=== PATIENT | female | born 1975 | race Caucasian/White ===

== ENCOUNTER 2018-11-04 08:00 | Outpatient (CLI) | payer MEDICAID ==
[2015-02-11 14:17] VITALS: BMI 26.6
[~2018-11-04 08:00] MED LIST: ALBUTEROL2.5 MG/3 M UPD; AMBIEN CR12.5 MG/BO; AMBIEN10 MG PO; BUTISOL SODIUM30 MG PO; CARAFATE1 G PO; CARDIZEM PO; CARDIZEM30 MG PO; CYMBALTA60 MG PO; DEMEROL100 MG PO; DEXILANT60 MG PO; DILAUDID2 MG PO; HYDROCODONE-APA1 TAB PO; IPRAT-ALBUT 0.5-3 ML UPD; KLOR-CON 1010 MEQ PO; LASIX20 MG PO; LEVSIN/ANASP0.125 MG SL; MAGIC MOUTHWASH PO; NEXIUM40 MG PO; NYSTATIN ORAL SU5 ML PO; ONDANSETRON4 MG/2 M3 IM; PAXIL10 MG PO; PHENERGAN25 MG/ML PO; REQUIP0.25 MG PO; REQUIP1 MG PO; SINGULAIR10 MG PO; SOMA350 MG PO; STADOL NASAL S2.5 ML NASAL; TENORMIN50 MG PO; TUSSIONEX PENN473 ML PO; TYLENOL W/CODEIN5 ML PO; ULORIC40 MG PO; XANAX1 MG PO
== END 2018-11-04 23:59 | disposition home or self-care (01) ==
LOC: D.MAMMO 08:00
PROVIDERS: ATTEND Nurse Practitioner Family
DX: Z12.31 Encounter for screening mammogram for malignant neoplasm of breast (principal)

== ENCOUNTER 2019-04-30 12:40 | Emergency (ER) | payer MEDICAID ==
[~2019-04-30] VITALS: Ht 165.1 cm; Wt 70.5 kg
[2019-04-30 12:46] VITALS: Ht 165.1 cm; Wt 70.5 kg
[2019-04-30] MEDS ORDERED: REQUIP5 MG PO (12:49)
[2019-04-30 13:53] LABS: BASOPHILS 0.2 % (0-2); EOSINOPHILS 1.7 % (0-7); HEMATOCRIT 39.6 % (36.0-48.0); HEMOGLOBIN 13.1 g/dL (12-16); IMMATURE GRANULOCYTES 0.1 % (0-5); LYMPHOCYTES 33.5 % (15-50); MCH 30.5 pg (26.0-34.0); MCHC 33.1 g/dL (31.0-37.0); MCV 92.1 fL (80.0-100.0); MEAN PLATELET VOLUME 10.2 fL (7.4-10.4); NEUTROPHILS 59.5 % (40-80); PLATELET COUNT 337 10x3/uL (130-400); WBC 9.3 10x3/uL (4.8-10.8)
[2019-04-30 13:54] LABS: CALC OSMOLALITY 286 mosm/kg (275-300); CALCIUM 8.8 mg/dL (8.5-10.1); CARBON DIOXIDE 28.3 mmol/L (21.0-32.0); CHLORIDE - SERUM 108 mmol/L (98-107); CREATININE - SERUM 0.7 mg/dL (0.6-1.3); GLUCOSE 118 mg/dL (74-106); SODIUM 143 mmol/L (136-145); UREA NITROGEN 14 mg/dL (7-18); eGFR NON AFRICAN AMERICAN > 90 mL/min (90-120)
[2019-04-30 14:02] LABS: ALBUMIN 3.3 g/dL (3.4-5.0); ALKALINE PHOSPHATASE 129 U/L (46-116); ALT (SGPT) 18 U/L (10-68); PROTEIN - SERUM 6.6 g/dL (6.4-8.2)
[2019-04-30 14:54] LABS: APPEARANCE CLEAR (CLEAR); BILIRUBIN NEGATIVE (NEGATIVE); COLOR YELLOW (YELLOW); GLUCOSE NEGATIVE (NEGATIVE); KETONE NEGATIVE (NEGATIVE); NITRITE NEGATIVE (NEGATIVE); PROTEIN NEGATIVE (NEGATIVE); SPECIFIC GRAVITY 1.015 (1.005-1.020); UROBILINOGEN NORMAL (NORMAL)
[2019-04-30] MEDS ORDERED: ULTRAM50 MG PO (16:15)
[2019-04-30] MEDS ORDERED: VALIUM 2 MG TAB2 MG PO (16:15)
[2019-04-30] MEDS ORDERED: MEDROL4 MG PO (16:17)
[2019-04-30 16:58] VITALS: BP 98/47
== END 2019-04-30 16:53 | disposition home or self-care (01) ==
LOC: D.ER 12:40
PROVIDERS: Family Medicine
DX: S29.012A Strain of muscle and tendon of back wall of thorax, initial encounter (principal); X50.1XXA Overexertion from prolonged static or awkward postures, initial encounter; Y93.9 Activity, unspecified; Y92.9 Unspecified place or not applicable; M62.838 Other muscle spasm; M41.80 Other forms of scoliosis, site unspecified; I10 Essential (primary) hypertension; Z72.0 Tobacco use; J44.9 Chronic obstructive pulmonary disease, unspecified

== ENCOUNTER → 2019-10-21 11:01 | Outpatient (CLI) | payer MEDICAID ==
[2019-04-30 12:46] VITALS: BMI 25.8
[~2019-10-21 11:01] MED LIST changes: +MEDROL4 MG PO; +REQUIP5 MG PO; +ULTRAM50 MG PO; +VALIUM 2 MG TAB2 MG PO
== END | disposition home or self-care (01) ==
LOC: D.LAB 11:01
PROVIDERS: ATTEND Internal Medicine Gastroenterology
DX: R19.4 Change in bowel habit (principal); R10.9 Unspecified abdominal pain